=== PATIENT | male | born 1965 | race African-American/Black ===

== ENCOUNTER 2021-10-09 18:15 | Emergency (ER) | payer BC ==
[~2021-10-09] VITALS: Ht 177.8 cm; Wt 102.3 kg
[2021-10-09] MEDS ORDERED: DEXAMETHASONE 4 MG TABLET PO ONE (20:45)
--- NOTE | 2021-10-09 20:46 | PHYS DOC ---
Past Medical History Past Medical History: Hypertension Past Surgical History: No Surgical History Smoking Status: Never Smoker Alcohol Use: None Drug Use: None General Adult EDM: Chief Complaint: FLU SYMPTOM HPI: HPI: Mr Ashton is a 55 year old male who presents to the ED with flu like symptoms. Patient states he started endorsing a sore throat, myalgas and productive cough thursday and developed headaches as the day developed. In ad dition to aforementioned symptoms he is endorsing waxing waning fevers, runny nnose and lack of appetite. He denies any SOB, and chest pain. He went for PCR COVID testing Thursday which came back negative for both COVID and Influenza. Patient has received both dose of the [employer] COVID vaccine. Review of Systems: Review of Systems: Constitutional: Endorses waxing waning fevers and chills Eyes: Denies redness or eye pain HENT: Denies nasal congestion but endorses sore throat Respiratory: Endorses cough, denies shortness of breath Cardiovascular: Denies chest pain or palpitations GI: Denies abdominal pain, nausea, or vomiting : Denies dysuria or hematuria Musculoskeletal: Denies back pain or joint pain Integument: Denies rash or skin lesions Neurologic: Denies headache, focal weakness or sensory changes Complete systems were reviewed and found to be within normal limits, except as documented in this note. Heart Score: C/O Chest Pain: N/A Current Medications: Current Medications Medications (Trade) Dose Ordered Sig/Miranda Start Time Stop Time Status Last Admin Dose Admin Dexamethasone (Decadron) 10 mg 1X ONCE 10/09/21 20:45 10/09/21 20:46 UNV Physical Exam: PE: Constitutional: Well developed, well nourished, no acute distress, non-toxic appearance HENT: Normocephalic, atraumatic, erythematous nares Eyes: PERRL, EOMI, conjunctiva normal, no discharge Neck: Normal range of motion, no tenderness, supple Lungs & Thorax: No respiratory distress, equal chest rise and fall, clear to auscultate bilaterally Abdomen: Soft, no tenderness Skin: Warm, dry, no erythema, no rash Back: No tenderness, no CVA tenderness Extremities: No tenderness, ROM intact, no edema Neurologic: Alert and oriented X 3, normal motor function, normal sensory function, no focal deficits noted Psychologic: Affect normal, judgment normal Current Patient Data: Vital Signs: Vital Signs Date Time Temp Pulse Resp B/P (MAP) Pulse Ox O2 Delivery O2 Flow Rate FiO2 10/09/21 20:10 98.6 116 16 210/105 (140) 100 Room Air 98.6 EKG: EKG: [] Radiology/Procedures: Radiology/Procedures: [] Course & Med Decision Making: Course & Med Decision Making Mr Ashton is a 55 year old male who presents to the ED with flu like symptoms. Upon further evaluation, patient did not require any further testing due to recent negative PCR COVID and Influenza testing in addition to clear lung sounds. Patient was given a dexamethasone shot for symptomatic control. Patient stable for discharge with outpatient follow-up with PCP for hypertension managment. Discussed findings and plan with patient, who acknowledges understanding and agreement. Pertinent Labs and Imaging studies reviewed. (See chart for details) [] Dragon Disclaimer: Dragon Disclaimer: This electronic medical record was generated, in whole or in part, using a voice recognition dictation system. Departure Departure Impression: Primary Impression: Viral syndrome Additional Impression: Hypertension Qualified Codes: I10 - Essential (primary) hypertension Disposition: HOME / SELF CARE / HOMELESS Condition: STABLE Referrals: NO PCP (PCP) Patient Instructions: Hypertension, [id number], Viral Syndrome Additional Instructions: Increase fluid hydration. Take [id number] cold and cough remedies. May also utilize giop-hva-[id number] ibuprofen and or Tylenol for pain or discomfort. Please follow closely with your doctor for reevaluation and treatment/adjustment of your medications for your blood pressure. DARRYN LEVINE DO Oct 09, 2021 20:46
[2021-10-09 20:56] VITALS: BP 175/86
== END 2021-10-09 21:15 | disposition home or self-care (01) ==
LOC: ER 18:15
DX: B34.9 Viral infection, unspecified (principal); I10 Essential (primary) hypertension
CPT/HCPCS: 99283